=== PATIENT | female | born 1990 | race Hispanic/Latino ===

== ENCOUNTER 2018-05-30 08:27 | Emergency (ER) | payer OTHER ==
[~2018-05-30] VITALS: Ht 160 cm; Wt 54.4 kg
[2018-05-30] MEDS ORDERED: ACETAMINOPHEN 325 MG TAB PO ONE (09:45)
[2018-05-30] MEDS ORDERED: SODIUM CHLORIDE 0.9% 1000ML 1,000 ML IV SCH (12:30)
[2018-05-30] MEDS ORDERED: IOPAMIDOL 300MG/ML 100 ML INFUS..BTL IV ONE (14:00)
[2018-05-30 14:27] VITALS: BP 114/74
== END 2018-05-30 14:08 | disposition home or self-care (01) ==
LOC: FSED 08:27
DX: R10.31 Right lower quadrant pain (principal); R11.0 Nausea; N30.91 Cystitis, unspecified with hematuria; R51 Headache
CPT/HCPCS: 74177; 76705; 76830; 80053; 81003; 81025; 85025; 99284; Q9967